=== PATIENT | male | born 2005 | race Caucasian/White ===

== ENCOUNTER 2023-11-11 07:58 | Emergency (ER) | payer BC, SELFPAY ==
[2023-11-11] VITALS (7 sets, daily range): BP systolic 124–165; BP diastolic 55–98
--- NOTE | 2023-11-11 08:40 | ED.GENMED ---
History of Present Illness
General
Chief Complaint: Change in Mental Status
Source: patient and family
Exam Limitations: none
Time Seen by Provider: 11/11/23 08:24
Nursing documentation reviewed up to this point in time: agreed with
History of Present Illness
History of Present Illness:
Patient with history of migraine headache, currently taking Ubrelvy, presents to ED secondary to recurrent headache this morning around 6:30 AM. Patient reports photophobia with nausea sensation. Patient proceeded to take his outpatient
medication, with mild improvement in headache. Unfortunately, per mother, patient still appears to be confused, which has happened previously. In the past, with significant migraine headache, patient not only became confused but was combative,
requiring intubation for airway protection. Upon arrival, patient states that his headache is improving. Denies vomiting. Denies blurred vision. Denies loss of sensation or weakness. Denies neck pain. Denies recent illness. Denies recent
change in medications or diet.
Past History
Past History
ED Past Medical History: Other (migraine)
ED Past Surgical History: None
Social History
Tobacco: Non-smoker
Alcohol: None
Review of Systems
Review of Systems
Allergies reviewed?: Yes
All Other Systems: ROS reviewed and negative except as documented in HPI and ROS
Constitutional: Reports no symptoms
EENT: Reports no symptoms
Respiratory: Reports no symptoms
Cardiac: Reports no symptoms
ABD/GI: Reports no symptoms
Musculoskeletal: Reports no symptoms
Skin: Reports no symptoms
Neurological: Reports headache and other (confusion)
Phy Exam
Physical Exam
Physical Exam:
Physical Exam
General: no apparent distress, not acutely ill. afebrile
Head: nc/at. eomi
Neck: supple. no meningeal signs.
Heart: s1/s2 regular rate and rhythm, no murmur. equal radial pulses.
Lungs: no acute respiratory distress. clear bilaterally
Abdomen: normal bowel sounds. not tender.
Neuro: alert and oriented. no focal neurological deficits
Skin: no rash
Psychiatric: well kept. interactive and cooperative
Extremities: no edema. no calf tenderness.
Course
Orders/Labs/Results
Orders:
Orders
11/11/23 08:50
Ondansetron Injectable [Zofran] 4 mg .ROUTE .STK-MED ONE
Ondansetron Injectable [Zofran] 4 mg IV NOW STA
11/11/23 09:16
Diphenhydramine [Benadryl] 12.5 mg IV NOW STA
Ketorolac [Toradol] 15 mg IV NOW STA
Lorazepam [Ativan] 0.5 mg IV NOW STA
Metoclopramide [Reglan] 10 mg IV NOW STA
11/11/23 09:40
Lorazepam [Ativan] 2 mg .ROUTE .STK-MED ONE
11/11/23 09:41
Ketamine [Ketalar] 160 mg IV NOW STA
11/11/23 09:43
Lorazepam [Ativan] 1 mg IV NOW STA
Vital Signs
Initial and Last Documented VS:
Initial Vital Signs
Temp Pulse Resp BP Pulse Ox
97.4 F 53 20 165/94 99
11/11/23 08:01 11/11/23 08:01 11/11/23 08:01 11/11/23 08:01 11/11/23 08:01
Last Documented Vital Signs
Temp Pulse Resp BP Pulse Ox
97.4 F 62 16 124/76 98
11/11/23 08:01 11/11/23 14:18 11/11/23 14:18 11/11/23 14:18 11/11/23 12:45
MDM/Problems Addressed
MDM/Problems Addressed:
Patient evaluated immediately upon arrival. At patient's mother's request to administer patient's home medication, as she would like to see if he could continue to take his home medication and function as an outpatient, decision made to wait for
his home medication to arrive via her friend.
Patient given 50 mg tablet of Ubrelvy with minimal relief in symptoms. Unfortunately, patient started to become more agitated and uncooperative. As such, patient given Ativan along with Reglan, Benadryl, and Toradol for migraine headache.
Shortly afterwards, patient noted to become even more agitated and attempting to get out of stretcher and remove IV. As such, decision made to administer ketamine IV for symptomatic control.
Patient shortly afterwards became sedated and was able to sleep for the next 1 hour. When he woke up, patient reports significant improvement symptoms and appears very calm.
Discussed with patient's neurology office, who will see patient upon discharge from ED this afternoon for reevaluation.
Critical care statement: A total of 40 minutes of critical care time was provided for this patient. This includes management of unstable vital signs, evaluation of the patient at bedside, reviewing the patient's pertinent medical records, discussion
with consultants, review of old EKGs and review of pertinent medical records. This time with separate from time utilized to perform the aforementioned documented procedures
*Critical Care Note
Total Time (30-74mins, 75-104mins- exclusive of procedures): Not Applicable
ED Attending Note
-
Portions of this chart may have been created with voice recognition software.� Occasional wrong word or��sound alike� substitutions may have occurred due to the inherent limitations of voice recognition software.
Discharge Plan
Departure
Patient Disposition: Home (Routine Discharge)
Date of Disposition: 11/11/23
Time of Disposition: 13:21
Patient with high blood pressure during this ER visit?: Yes
Discharge Problem:
Migraine
Instructions: Migraine in adults
Prescriptions:
No Action
ondansetron 4 MG tablet,disintegrating
4 mg PO TID PRN (Reason: nausea/vomiting) Qty: 12 0RF
Ubrelvy 50 mg tablet
50 mg PO DAILYPRN PRN (Reason: Migraine) Qty: 30 0RF
Rx Instructions:
Can repeat x1 more dose after 2 hour if needed.
Referrals:
Earl Jon MD [Active] -
Ari Roberts MD [Family Provider] -
Activity Restrictions/Additional Instructions:
As discussed, please follow-up with referred neurologist upon discharge for further evaluation and treatment.
Interventions
Interventions:
*Risk Screen - Suicide Last Done: 11/11/23 08:16
*Neglect/Abuse Screening Last Done: 11/11/23 08:16
*ED COVID-19 Vaccine History Last Done: 11/11/23 08:15
*Nursing Disposition Last Done: 11/11/23 14:18
ED- Pulmonary Assessment Last Done: 11/11/23 08:17
ED-Psychological Assessment Last Done: 11/11/23 08:29
ED- Neurological Assessment Last Done: 11/11/23 08:16
ED- Cardiac Assessment Last Done: 11/11/23 08:17
Discharge Date and Time
Discharge Date/Time: 11/11/23 14:19
Print Language: ROMANIAN
[2023-11-11] MEDS: ZOFRAN 4 MG IV (08:55)
[2023-11-11] MEDS: ATIVAN 0.5 MG IV (09:26)
[2023-11-11] MEDS: BENADRYL 12.5 MG IV (09:26)
[2023-11-11] MEDS: TORADOL 15 MG IV (09:27)
[2023-11-11] MEDS: REGLAN 10 MG IV (09:27)
[2023-11-11] MEDS: ATIVAN 1 MG IV (09:44)
[2023-11-11] MEDS: KETALAR 160 MG IV (10:01)
== END 2023-11-11 14:19 | disposition home or self-care (01) ==
LOC: EMR 07:58
PROVIDERS: EMERGENCY PHYSICIAN Emergency Medicine; FAMILY PHYSICIAN Pediatrics
DX: G43.909 Migraine, unspecified, not intractable, without status migrainosus (principal); R45.1 Restlessness and agitation; R41.0 Disorientation, unspecified; R11.0 Nausea; R20.0 Anesthesia of skin; R03.0 Elevated blood-pressure reading, without diagnosis of hypertension; Z91.018 Allergy to other foods
CPT/HCPCS: 99291; 96374; 96375 ×5